=== PATIENT | female | born 1935 | race Caucasian/White ===

== ENCOUNTER 2017-12-11 09:59 | Outpatient (CLI) | payer MEDICARE, OTHER | END 2017-12-11 10:00 | disposition home or self-care (01) | LOC: BICMAMMO 09:59 | PROVIDERS: ATTEND Internal Medicine | DX: Z12.31 Encounter for screening mammogram for malignant neoplasm of breast (principal) | CPT/HCPCS: 77063; 77067 ==

== ENCOUNTER 2018-01-04 04:36 | Inpatient (IN) | payer MEDICARE, OTHER ==
[2018-01-04] MEDS ORDERED: Ondansetron PF 4 MG/2 ML Vial ONE (05:02)
[2018-01-04 05:13] LABS: #Basophils 0.1 thou/uL (0.0-0.2); #Eosinphils 0.1 thou/uL (0.0-0.7); #Lymphocytes 1.5 thou/uL (1.20-3.40); #Monocytes 0.5 thou/uL (0.11-0.59); #Neutrophils 8.3 thou/uL (1.40-6.50); %Basophils 0.5 % (0.0-1.0); %Lymphocytes 13.9 % (21.0-51.0); %Monocytes 5.1 % (0.0-10.0); %Neutrophils 79.5 % (42.0-75.0); Mean Corpuscular HGB CONC 32.5 g/dL (32.0-36.0); Mean Corpuscular Hemoglobin 31.4 pg (27.0-31.0); Mean Corpuscular Volume 96.7 fL (78.0-98.0); Mean Platelet Volume 8.7 fL (7.4-10.4); Platelet Count 248 thou/uL (130-400); RBC Distribution Width 12.1 % (11.5-14.5); Red Blood Cell (RBC) Count 4.46 mill/uL (4.20-5.40); White Blood Cell (WBC) Count 10.4 thou/uL (4.8-10.8)
[2018-01-04 05:26] LABS: ALT (SGPT) 29 U/L (8-55); AST (SGOT) 31 U/L (5-34); Alkaline Phosphatase 79 U/L (40-150); Anion Gap 15 mmol/L (10-20); BUN (Urea Nitrogen) 23 mg/dL (9.8-20.1); Bilirubin, Total 0.6 mg/dL (0.2-1.2); Calc. Creatinine Clearance 0 mL/min (70-130); Calcium 10.6 mg/dL (7.8-10.44); Carbon Dioxide 24 mmol/L (23-31); Chloride 103 mmol/L (98-107); Estimated GFR-MDRD 44; Globulin 3.1 g/dL (2.4-3.5); Glucose 125 mg/dL (83-110); Lipase 29 U/L (8-78); Potassium 4.1 mmol/L (3.5-5.1); Protein, Total 7.1 g/dL (6.0-8.3); Sodium 138 mmol/L (136-145)
[2018-01-04 06:27] LABS: Bilirubin Negative (Negative); Blood, Urine Negative (Negative); Clarity CLEAR (Clear); Glucose, Urine (Dipstick) Negative (Negative); Leukocyte Trace (Negative); Nitrite Negative (Negative); Protein, Urine (Dipstick) Negative (Neg-Trace); Specific Gravity, Urine 1.009 (1.002-1.036); Urobilinogen 0.2 mg/dL (0.2-1.0); pH, Urine 6.5 (5.0-9.0)
[2018-01-04 06:30] LABS: Bacteria/HPF None Seen HPF (None Seen); Hyaline Casts/LPF 0-3 HYALINE CAST LPF (0-3 Hyaline); RBC/HPF 0-3 HPF (0-3); Squamous Epithelial 0-3 HPF (0-3); WBC/HPF 0-3 HPF (0-3)
[2018-01-04] MEDS ORDERED: Lidocaine Viscous Sol 2% 15 ml UD Cup ONE (07:07)
--- NOTE | 2018-01-04 07:53 | RAD ---
FRONTAL VIEW ABDOMEN: INDICATION: Tube placement. FINDINGS: There is an enteric catheter partially visualized that terminates at the left upper quadrant. There is an air-filled gastric lumen. The paucity of bowel gas pattern is otherwise depicted. IMPRESSION: Enteric catheter traverses to the left upper quadrant. POS: [facility]
--- NOTE | 2018-01-04 08:26 | CT ---
PRELIMINARY REPORT/[facility]/EMERGENTY AFTER-HOURS PROCEDURE CT Abdomen and Pelvis With Intravenous Contrast EXAM DATE/TIME: 01/04/2018 6:16 AM CLINICAL HISTORY: 82 years old, female; Pain; Abdominal pain; Acute; Additional info: Er 8; 82 yo f presents to ed via ems with defuse abdominal pain. PT reports aching abdominal pain that started yesterday afternoon, wi th intermittent nausea. PT reports current abdominal hernia for the past 10 years. Surgical HX of reverse colostomy/hernia, colon surgery (severe sepsis), gallbladder, hysterectomy, appendecotmy. TECHNIQUE: Axial computed tomography images of the abdomen and pelvis with intravenous contrast. All CT scans at this facility use at least one of these dose optimization techniques: automated exposure control; mA and/or kV adjustment per patient size (includes targeted exams where dose is matched to clinical ind ication); or iterative reconstruction. Coronal reformatted images were created and reviewed. CONTRAST: 100 ml of isovue 370 administered intravenously. COMPARISON: No relevant prior studies available. FINDINGS: Lower thorax: No acute findings. ABDOMEN: Liver: Couple of subcentimeter low attenuation lesions too small to characterize. Gallbladder and bile ducts: Cholecystectomy. Pancreas: Unremarkable. Spleen: Unremarkable. Adrenals: Unremarkable. Kidneys and ureters: 2.3 cm left renal lesion slightly more dense than a simple cyst. Few subcentimet er low attenuation renal lesions bilaterally, too small to characterize, although some more dense danii n simple cysts. Punctate nonobstructive stone in the lower pole of the right kidney. No obstructive stone or hydronephrosis. Stomach and bowel: Apparent wall thickening about the GE junction. Sigmoid sutures. Dilated loops of proximal small bowel with change in caliber anteriorly in the left mid abdomen (43-35). The distal small bowel is decompressed. Stranding and minimal fluid within the mesentery of the dilated l oops. Appendix: History of appendectomy. PELVIS: Bladder: Unremarkable. Reproductive: Hysterectomy. ABDOMEN and PELVIS: Intraperitoneal space: No organized fluid collection. No free air. Bones/joints: No acute fracture. No dislocation. Soft tissues: Periumbilical hernia containing a short segment of nonobstructed transverse colon. Small fat containing ventral abdominal wall hernia superiorly. Vasculature: Unremarkable. Lymph nodes: No enlarged lymph nodes. IMPRESSION: 1. Dilated small bowel loops with mesenteric edema and change in caliber in the left anterior abdomen suggestive of obstruction. 2. Wall thickening of the GE junction. Thank you for allowing us to participate in the care of your patient. Dictated and Authenticated by: Jose Alejandro Rodriguez MD 01/04/2018 6:41 AM Central Time ([place] & [place]) FINAL REPORT CT ABDOMEN AND PELVIS WITH IV CONTRAST: I agree with the preliminary report given by Dr. Jose Alejandro Rodriguez of [facility]. POS: [facility]
[2018-01-04 08:33] VITALS: BMI 42.1
[2018-01-04] MEDS ORDERED: Acetaminophen 325 MG TAB PO PRN (08:49)
[2018-01-04] MEDS ORDERED: Dextrose 5 % And 0.9 % NaCl 1,000 ML IV SCH (09:00)
[2018-01-04] MEDS: Dextrose 5 % And 0.9 % NaCl 1,000 ML IV SCH ×5 (09:18→23:11)
[2018-01-04] MEDS: Famotidine/PF 20 mg/2ml Vial SLOW IVP SCH ×2 (09:23→20:13)
[2018-01-04 09:25] LABS: PTT 30.9 SEC (22.9-36.1); Prothrombin Time 13.2 SEC (12.0-14.7)
[2018-01-04] MEDS ORDERED: Sodium Chloride 0.9% 500 ML IV SCH (09:45)
--- NOTE | 2018-01-04 10:16 | CON ---
DATE OF CONSULTATION: 01/04/2018 CHIEF COMPLAINT: Mid abdominal pain. HISTORY: An 82-year-old female with a 24-hour history of generalized abdominal pain and nausea. Las t bowel movement Thursday. Last flatus Thursday. She has had multiple abdominal surgeries including a sigmoid colon resection for perforation with subsequent colostomy reversal. PAST MEDICAL HISTORY: Ventral hernia, morbid obesity, hypertension, Meniere's, hyperlipidemia. PAST SURGICAL HISTORY: The colectomy, colostomy takedown, lumpectomy, carpal tunnel, total knee repl acement, rotator cuff surgery, laparoscopic cholecystectomy, cataract surgery, open hysterectomy, ike endectomy, tonsil and adenoidectomy. MEDICATIONS: Hydrochlorothiazide, lisinopril, CoQ 10, Tylenol, Aleve and multivitamins. ALLERGIES: LATEX, PENICILLIN, SULFA, CITALOPRAM, LEXAPRO, CIPRO, FLAGYL, NITROFURANTOIN, TRAMADOL, D ARVON, SANSAR. SOCIAL HISTORY: . She is a personal banking advisor, still working. No tobacco, no alcohol. FAMILY HISTORY: Heart disease and cancer. PHYSICAL EXAMINATION: VITAL SIGNS: Temperature 98.5, pulse 102, blood pressure 151/82. GENERAL: She is awake, alert, does not appear to be in any distress. HEENT: Unremarkable. LUNGS: Clear. HEART: Regular rate and rhythm. ABDOMEN: Morbidly obese. She has an umbilical hernia that is reducible and a separate ventral herni a above that area that is more difficult to reduce, but is also reducible. There are rare bowel soun ds, no masses. She is somewhat distended. She has multiple well-healed surgical scars in the midlin e, left lower quadrant, right lower quadrant. EXTREMITIES: Unremarkable. LABORATORY AND X-RAY FINDINGS: Her white count is 10, H&H 14 and 43, platelet count 248. Electrolyt es; BUN is 23, creatinine 1.18, glucose 125. Urinalysis; trace leukocyte esterase, INR 1. She had a CT scan of the abdomen and pelvis showing dilated small bowel with mesenteric edema and miguel nges in caliber in the left anterior abdomen consistent with an obstruction and some wall thickening at the GE junction. ASSESSMENT: Small-bowel obstruction. PLAN: NG suction, IV hydration, serial exams and x-rays.
[2018-01-04] MEDS ORDERED: ISOVUE-370 76%-LOCM 1 ML ONE (10:57)
[2018-01-04] MEDS ORDERED: Cepastat Lozenges 1 LOZ PO PRN (16:38)
[2018-01-04] MEDS ORDERED: hydrALAZINE 20 MG/ML VIAL SLOW IVP PRN (16:39)
--- NOTE | 2018-01-04 17:52 | HP ---
HISTORY OF PRESENT ILLNESS: Patient is a pleasant 82-year-old female with past medical history of hy pertension, who comes into the hospital with complaints of generalized abdominal pain and nausea x1 d ay. Patient stated her last bowel movement was Thursday; yesterday after lunch, she started having s ignificant amount of abdominal pain. She did not describe as a cramping or a sharp pain, but just fe lt very uncomfortable and also nausea. Patient thought that her pain would improve, so she kind of w ent laid down; however, her pain continued to worsen, so she came into the hospital for further evalu ation. Patient has a history of sigmoid colon resection secondary to perforation from diverticulitis. She a lso had a colostomy which was reversed. PAST MEDICAL HISTORY: She has a history of ventral hernia. She has a history of diverticulitis and perforation, history of morbid obesity, has history of hypertension and she has a history of hyperlip idemia. PAST SURGICAL HISTORY: She has had a colectomy, colostomy takedown. She had carpal tunnel repair, t otal knee replacement, rotator cuff repair, laparoscopic cholecystectomy. She also had a hysterectom y, appendectomy, tonsillectomy and adenoidectomy. MEDICATIONS: Patient takes hydrochlorothiazide 12.5 daily. She takes lisinopril 40 mg daily. She t akes vitamin B 150 mg daily. ALLERGIES: She has got multiple allergies including LATEX, PENICILLIN, SULFA, CITALOPRAM, LEXAPRO, C IPRO, FLAGYL, NITROFURANTOIN, TRAMADOL, DARVON and . SOCIAL HISTORY: She denies any alcohol or drug use. 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 FAMILY HISTORY: Mother and father has history of heart disease and cancer. PHYSICAL EXAMINATION: VITAL SIGNS: As of the following, temperature of 98.5, 102, 18, 97% room air, 151/82. GENERAL: She is awake, alert, oriented x3, does not appear in distress. HEENT: Normocephalic, atraumatic. NECK: No lymphadenopathy noted. CARDIOVASCULAR: S1, S2 present. No murmurs, rubs or gallops. LUNGS: Clear to auscultation, rhonchi or wheezes noted. ABDOMEN: Soft. Bowel sounds are present x2. Mild pain upon palpation to right lower quadrant and l eft lower quadrant. EXTREMITIES: No edema. Pedal pulses are present x2. NEUROLOGIC: No focal deficits noted. LABORATORY DATA: WBC of 10.4, hemoglobin of 14.0, hematocrit of 43.1, platelets of 248. Chemistry: Sodium of 138, potassium of 4.1, creatinine of 1.18, BUN of 23, calcium of 10.6. LFTs were normal. Her urine was negative. Patient did have a CT abdomen and pelvis, which indicated dilated small bow el loops with mesenteric edema and changes in caliber in the left anterior abdomen suggestive of obst ruction and wall thickening in the GE junction. ASSESSMENT AND PLAN: Patient is a very pleasant 82-year-old female who presented to the hospital wit h abdominal pain, nausea. 1. Small-bowel obstruction. Patient currently has a NG tube. She states she feels a little better than prior. We will continue the NG tube. Surgery has been consulted. We will hold all her p.o. me ds. She is currently n.p.o. We will continue IV fluids and also pain management, IV pain medication s. 2. Hypercalcemia. We will continue fluid to see if that will help. It is most likely secondary to dehydration; however, if her calcium continues to be elevated, as she may require a little bit furthe r workup since she does have mild elevated creatinine also. May consider checking a vitamin D and a parathyroid. 3. Hypertension. We will hold her p.o. medications. We will put her on IV medications. 4. Deep venous thrombosis prophylaxis. We will put patient on subcutaneous heparin.
[2018-01-04] MEDS: Heparin 5,000 UNITS/ML VIAL SC SCH (20:13)
[2018-01-05 06:30] LABS: #Eosinphils 0.3 thou/uL (0.0-0.7); #Lymphocytes 1.7 thou/uL (1.20-3.40); #Monocytes 0.7 thou/uL (0.11-0.59); #Neutrophils 6.6 thou/uL (1.40-6.50); %Basophils 0.2 % (0.0-1.0); %Monocytes 7.5 % (0.0-10.0); %Neutrophils 71.3 % (42.0-75.0); Hemoglobin 12.5 g/dL (12.0-16.0); Mean Corpuscular HGB CONC 32.1 g/dL (32.0-36.0); Mean Corpuscular Hemoglobin 31.5 pg (27.0-31.0); Mean Corpuscular Volume 98.1 fL (78.0-98.0); Mean Platelet Volume 9.2 fL (7.4-10.4); Platelet Count 208 thou/uL (130-400); RBC Distribution Width 12.1 % (11.5-14.5); Red Blood Cell (RBC) Count 3.96 mill/uL (4.20-5.40); White Blood Cell (WBC) Count 9.2 thou/uL (4.8-10.8)
[2018-01-05 06:52] LABS: Anion Gap 10 mmol/L (10-20); BUN (Urea Nitrogen) 13 mg/dL (9.8-20.1); Calc. Creatinine Clearance 74 mL/min (70-130); Calcium 9.5 mg/dL (7.8-10.44); Carbon Dioxide 28 mmol/L (23-31); Chloride 107 mmol/L (98-107); Estimated GFR-MDRD 53; Glucose 111 mg/dL (83-110); Magnesium 1.6 mg/dL (1.6-2.6); Potassium 3.7 mmol/L (3.5-5.1); Sodium 141 mmol/L (136-145)
[2018-01-05] MEDS: Famotidine/PF 20 mg/2ml Vial SLOW IVP SCH ×2 (07:55→19:48)
[2018-01-05] MEDS: Heparin 5,000 UNITS/ML VIAL SC SCH ×3 (07:57→19:50)
[2018-01-05] MEDS: Dextrose 5 % And 0.9 % NaCl 1,000 ML IV SCH ×3 (07:58→19:47)
[2018-01-05] MEDS ORDERED: MD-Gastroview 120 ML BOT ONE (11:50)
--- NOTE | 2018-01-05 12:36 | RAD ---
SMALL BOWEL FOLLOW THROUGH: CLINICAL HISTORY: Small bowel obstruction. FINDINGS: Approximately 480 cc radiopaque enteric contrast was administered via the patient's orogastric tube w ith subsequent radiographic imaging for 45 minutes. By 45 minutes of imaging, there is contrast with in the colon. The contrast-opacified small bowel loops are mildly dilated. IMPRESSION: Progression of contrast through the small bowel and into the colon by 45 minutes. Persistent mild di latation of small bowel is present. Findings may relate to a low-grade/partial obstruction versus re sidual ileus. POS: [facility]
--- NOTE | 2018-01-05 13:18 | PRG ---
DATE OF SERVICE: 01/05/2018 HOSPITAL COURSE: The patient reports multiple bowel movements today. She had a small bowel follow t hrough that showed a little bit of residual small bowel dilatation, but no obstruction and flow into the colon by 45 minutes. She is still having a little nausea, though. PHYSICAL EXAMINATION: VITAL SIGNS: Her temperature 98.5, pulse 83, blood pressure 126/58. GENERAL: She looks good, better than yesterday. LABORATORY: White count is 9.2, H&H 12 and 38, platelet count 208. Electrolytes; glucose is elevate d at 111. ASSESSMENT: Doing well. PLAN: The plan is to just resume NG suction for a while to get as much of the contrast out as we can . When her nausea resolves I told the nurse that we could remove the NG tube and then start her on l iquids.
--- NOTE | 2018-01-05 18:07 | PDOC.PN ---
- Subjective Encounter Start Date: 01/05/18 Encounter Start Time: 11:00 Patient seen and examined for SBO. Abd pain improving. Had BM today. No other complaints. No overnight events - Objective Resuscitation Status: Resuscitation Status FULL:Full Resuscitation MAR Reviewed: Yes Vital Signs & Weight: Vital Signs (12 hours) Temp Pulse Resp BP Pulse Ox 01/05/18 17:22 18 95 01/05/18 16:33 99.0 F 95 20 128/57 L 01/05/18 12:55 97.7 F 108 H 18 95 01/05/18 12:42 107 H 20 118/80 94 L 01/05/18 08:00 97 01/05/18 07:55 18 97 01/05/18 07:45 98.5 F 83 22 H 126/58 L 97 Weight Weight 238 lb I&O: 01/04/18 01/05/18 01/06/18 06:59 06:59 06:59 Intake Total 1500 800 Balance 1500 800 Result Diagrams: 01/05/18 05:52 01/06/18 03:37 Additional Labs: Accuchecks 01/05/18 11:23 POC Glucose 114 H Radiology Reviewed by me: Yes (CT abd - SBO) Phys Exam - Physical Examination Constitutional: NAD Respiratory: no wheezing, no rhonchi Cardiovascular: RRR, no rub Gastrointestinal: soft, non-tender, positive bowel sounds Musculoskeletal: no edema Neurological: moves all 4 limbs Dx/Plan - Plan DVT proph w/SCDs 1. SBO 2. HTN 3. Morbid obesity BMI 42 4. CKD 3 5. Dehydration 6. Vit D def PLAN: Small bowel follow through today Cont IVF AM labs Replace Vit D once tolerating PO Cont other meds as below Review of Systems - Review of Systems Cardiovascular: negative: chest pain, palpitations, orthopnea, paroxysmal nocturnal dyspnea, edema, light headedness, other Gastrointestinal: negative: Nausea, Vomiting, Abdominal Pain, Diarrhea, Constipation, Melena, Hematochezia, Other - Medications/Allergies Allergies/Adverse Reactions: Allergies Allergy/AdvReac Type Severity Reaction Status Date / Time latex Allergy Intermediate Severe Verified 07/19/12 10:57 Hives methysergide maleate Allergy Intermediate Anxiety Verified 10/10/13 12:48 [From Sansert] Penicillins Allergy Intermediate Rash Verified 10/10/13 12:48 Sulfa (Sulfonamide Allergy Intermediate Nausea Verified 10/10/13 12:48 Antibiotics) cephalexin monohydrate Allergy Mild Verified 10/10/13 12:48 [From Keflex] cetirizine Allergy Mild Verified 10/10/13 12:48 cilostazol Allergy Mild Verified 10/10/13 12:48 escitalopram oxalate Allergy Mild Verified 10/10/13 12:48 [From Lexapro] propoxyphene HCl Allergy Mild Verified 10/10/13 12:48 [From Darvon] propoxyphene napsylate Allergy Mild Verified 10/10/13 12:48 [From Darvocet-N 100] tramadol Allergy Mild Verified 10/10/13 12:48 dichloralphenazone Allergy Verified 10/10/13 12:48 [From MIDRIN] isometheptene mucate Allergy Verified 10/10/13 12:48 [From MIDRIN] metronidazole Allergy Verified 10/10/13 13:12 nitrofurantoin Allergy Verified 10/10/13 13:12 ciprofloxacin [From Cipro] AdvReac Intermediate Nausea Verified 10/10/13 12:48 ciprofloxacin HCl AdvReac Intermediate Nausea Verified 10/10/13 12:48 [From Cipro] Medications: Current Medications Acetaminophen (Tylenol) 650 mg PO Q4H PRN PRN Reason: Headache/Fever/Mild Pain (1-3) Famotidine (Pepcid) 20 mg SLOW IVP Q12HR COUNT INCLUDES THE [facility] Last Admin: 01/05/18 07:55 Dose: 20 mg Heparin Sodium (Porcine) (Heparin) 5,000 units SC TID COUNT INCLUDES THE [facility] Last Admin: 01/05/18 15:10 Dose: 5,000 units Hydralazine HCl (Apresoline) 5 mg SLOW IVP Q4H PRN PRN Reason: Blood Pressure Dextrose/Sodium Chloride (D5 0.9% Ns) 1,000 mls @ 125 mls/hr IV .Q8H COUNT INCLUDES THE [facility] Last Admin: 01/05/18 16:39 Dose: Not Given Throat Lozenges (Cepastat Lozenges) 1 brendan PO Q2H PRN PRN Reason: Sore Throat Last Admin: 01/05/18 01:51 Dose: 1 brendan
[2018-01-06] MEDS: Dextrose 5 % And 0.9 % NaCl 1,000 ML IV SCH ×2 (03:50→12:29)
[2018-01-06 05:12] LABS: Anion Gap 10 mmol/L (10-20); BUN (Urea Nitrogen) 10 mg/dL (9.8-20.1); Calc. Creatinine Clearance 72 mL/min (70-130); Calcium 9.6 mg/dL (7.8-10.44); Carbon Dioxide 27 mmol/L (23-31); Chloride 112 mmol/L (98-107); Estimated GFR-MDRD 51; Glucose 97 mg/dL (83-110); Magnesium 1.7 mg/dL (1.6-2.6); Phosphorus 2.1 mg/dL (2.3-4.7); Potassium 3.6 mmol/L (3.5-5.1); Sodium 145 mmol/L (136-145)
[2018-01-06] MEDS ORDERED: hydrALAZINE 20 MG/ML VIAL SLOW IVP PRN (06:32)
[2018-01-06 08:03] VITALS: BP 122/76; TEMP 97.8
[2018-01-06] MEDS: K-Phos Neutral 250 MG TAB PO SCH ×2 (08:27→11:21)
--- NOTE | 2018-01-06 08:53 | PRG ---
DATE OF SERVICE: 01/06/2018 SUBJECTIVE: The patient is tolerating clear liquids, passing flatus. She is hungry for more food. PHYSICAL EXAMINATION: VITAL SIGNS: Temperature 97.8, pulse 80, blood pressure 122/76. GENERAL: She looks good. ABDOMEN: Soft, nondistended, nontender, morbidly obese. ASSESSMENT: Small-bowel obstruction, resolved. PLAN: Advance diet. Discharge when Medicine ready.
[2018-01-06] MEDS ORDERED: Famotidine 20 MG TAB PO SCH (09:00)
[2018-01-06] MEDS ORDERED: Ergocalciferol 1.25 MG(50,000 UNITS) CAP PO SCH (09:00)
--- NOTE | 2018-01-06 18:06 | DIS ---
DATE OF DISCHARGE: 01/06/2018 DISCHARGE DISPOSITION: Home. FOLLOWUP: With primary care physician, Dr. James in 1 week. DISCHARGE MEDICATIONS: K-Phos 250 mg three times daily #7. All other home medications were left unchanged. DIAGNOSTIC TESTS: 25-hydroxy vitamin D was 26. PTH intact was 102.6, phosphorus was 2.1, magnesium 1.7. Creatinine on the day of discharge is 1.03, on admission was 1.18. BUN on admission was 23, at discharge 10. Urinalysis was negative for wbc, bacteria. CT scan of the abdomen and pelvis on admi ssion was consistent with small-bowel obstruction. BRIEF HOSPITAL COURSE: The patient is an 82-year-old female with colectomy in the past, presented to the hospital with abdominal pain. Her workup was consistent with small-bowel obstruction. Please r efer to the history and physical dated 01/03/[address] Mchugh for further details. The patient was admitted to the medical floor with a diagnosis of small-bowel obstruction. NG tube w as placed. She was started on IV fluids. The patient was evaluated by General Surgery. She underwe nt Gastrografin study. Next day, the patient underwent small bowel follow-through that showed progre ssion of the contrast through the small bowel into the colon by 45 minutes. She was started on clear liquid diet that has been advanced to full liquid diet. She has been cleared by General Surgery for discharge. The patient was found to have hypercalcemia of 10.6. Her PTH level was slightly elevated. Vitamin D level was low. Phosphorus level was also low. She would need further workup for possible primary h yperparathyroidism. FINAL DIAGNOSES: 1. Small-bowel obstruction, resolved. 2. Hypertension. 3. Morbid obesity with a BMI of 42. 4. Chronic kidney disease stage 3. 5. Dehydration. 6. Vitamin D deficiency. 7. Hypercalcemia with hypophosphatemia. 8. Suspected hyperparathyroidism. Further workup as needed. Primary care physician advised to foll ow. Plan of care was discussed with the patient in detail. She stated understanding.
== END 2018-01-06 14:58 | disposition home or self-care (01) | DRG 389 ==
LOC: ERS 04:36 → T4-A 07:07
PROVIDERS: ADMIT Internal Medicine; ATTEND Internal Medicine
PROC: 0D9670Z Drainage of Stomach with Drainage Device, Via Natural or Artificial Opening (ICD-10-PCS; principal; 2018-01-04)
DX: K56.609 Unspecified intestinal obstruction, unspecified as to partial versus complete obstruction (principal); Z68.41 Body mass index [BMI] 40.0-44.9, adult; E78.5 Hyperlipidemia, unspecified; E66.01 Morbid (severe) obesity due to excess calories; E83.52 Hypercalcemia; E86.0 Dehydration; I12.9 Hypertensive chronic kidney disease with stage 1 through stage 4 chronic kidney disease, or unspecified chronic kidney disease; N18.3 Chronic kidney disease, stage 3 (moderate); E83.39 Other disorders of phosphorus metabolism
CPT/HCPCS: 36415; 36416; 74018; 74177; 74250; 80048; 80053; 81003; 81015; 82306; 83605; 83690; 83735; 83970; 84100; 85025; 85610; 85730; 93005; 96361; 96374; J1644; J2405; S0028

== ENCOUNTER 2018-11-24 07:18 | Outpatient (CLI) | payer MEDICARE, OTHER ==
--- NOTE | 2018-11-24 09:58 | CT ---
CT ABDOMEN AND PELVIS WITH IV CONTRAST: HISTORY: Generalized abdominal pain and unintentional weight loss. COMPARISON: 01/04/2018 FINDINGS: There is minimal patchy density in the region of the lingula, probably related to atelectasis. The liz ng bases are otherwise clear. Vascular calcifications are again seen in the abdominal aorta and involving the iliac arteries. Post cholecystectomy changes are present. The liver, spleen, pancreas and bilateral adrenal glands demonstrate a normal CT appearance. There ar e subcentimeter hypodense and hyperdense lesions again seen within each kidney, which are difficult t o accurately characterize but not significantly changed in size. There is no hydronephrosis. A few pa rapelvic left renal cysts are seen. The urinary bladder is mostly decompressed. There is evidence of prior hysterectomy. Post surgical changes of the colon are noted with anastomosis in the region of the sigmoid colon. The ventral abdominal wall hernia contains a loop of the transverse colon. This was also present on t he prior exam. There is no evidence of a bowel obstruction. The appendix is not visualized but there are no secondary signs to suggest appendicitis. No free fluid, fluid collection or lymphadenopathy is seen in the abdomen or pelvis. Degenerative changes are again seen in the spine. No suspicious lytic or sclerotic osseous lesions ar e identified. Bilateral hip osteoarthritis is present. The previously seen dilated, fluid filled loops of small bowel in the left aspect of the abdomen are normal in caliber on today's exam. A very small hiatal hernia is present. No other interval change. IMPRESSION: 1. No acute findings are seen in the abdomen or pelvis. 2. No evidence of lymphadenopathy. 3. Post cholecystectomy changes. 4. Ventral abdominal wall hernias, one containing a small amount of mesenteric fat and the second con taining a loop of transverse colon, stable from prior study. 5. Stable postoperative changes in the region of the sigmoid colon with evidence of anastomosis. 6. Hysterectomy. 7. Interval resolution of dilated loops of bowel and edema within the mesentery left lower quadrant. 8. Subcentimeter hypodense and hyperdense bilateral renal lesions with larger inferior pole left osiris l cyst again seen and stable. POS: [facility]
[2018-11-24] MEDS ORDERED: ISOVUE-370 76%-LOCM 1 ML ONE (10:10)
== END 2018-11-24 07:19 | disposition home or self-care (01) ==
LOC: BICCT 07:18
PROVIDERS: ATTEND Physician Assistant Medical
DX: R13.10 Dysphagia, unspecified (principal); R10.84 Generalized abdominal pain; R19.4 Change in bowel habit; R11.0 Nausea; R63.4 Abnormal weight loss; K43.9 Ventral hernia without obstruction or gangrene; Z90.49 Acquired absence of other specified parts of digestive tract; Z98.890 Other specified postprocedural states; Z90.710 Acquired absence of both cervix and uterus; N28.1 Cyst of kidney, acquired; N28.9 Disorder of kidney and ureter, unspecified
CPT/HCPCS: 74177; Q9966

== ENCOUNTER 2018-12-14 08:30 | Outpatient (CLI) | payer MEDICARE, OTHER ==
--- NOTE | 2018-12-14 10:02 | MMO ---
Bilateral MAMMO Bilat Screen [facility]. CLINICAL HISTORY: Patient is 83 years old and is seen for screening. The patient has no family history of breast cancer. The patient has no personal history of cancer. The patient has a history of left Excisional Biopsy in September, - benign and left needle biopsy - benign. VIEWS: The views performed were: bilateral craniocaudal; bilateral craniocaudal with tomosynthesis; and bilateral mediolateral oblique with tomosynthesis. FILMS COMPARED: The present examination has been compared to prior imaging studies performed at [facility] on 11/01/2014, 11/09/2015, 12/09/2016 and 12/11/2017. This study has been interpreted with the assistance of computer-aided detection. MAMMOGRAM FINDINGS: There are scattered fibroglandular densities. There are stable benign appearing calcifications seen in both breasts. There are no suspicious masses, calcifications or areas of architectural distortion. There are no suspicious masses, suspicious calcifications, or new areas of architectural distortion. IMPRESSION: THERE IS NO MAMMOGRAPHIC EVIDENCE OF MALIGNANCY. A ROUTINE FOLLOW-UP MAMMOGRAM IN 1 YEAR IS RECOMMENDED. THE RESULTS OF THIS EXAM WERE SENT TO THE PATIENT. ACR BI-RADS Category 2 - Benign finding MAMMOGRAPHY NOTE: 1. A negative mammogram report should not delay a biopsy if a dominant of clinically suspicious mass is present. 2. Approximately 10% to 15% of breast cancers are not detected by mammography. 3. Adenosis and dense breasts may obscure an underlying neoplasm. Reported by: KHADRA CRISTOBAL MD Electonically Signed: [id number]
== END 2018-12-14 08:31 | disposition home or self-care (01) ==
LOC: BICMAMMO 08:30
PROVIDERS: ATTEND Internal Medicine
DX: Z12.31 Encounter for screening mammogram for malignant neoplasm of breast (principal)
CPT/HCPCS: 77063; 77067

== ENCOUNTER 2019-10-15 10:15 | Emergency (ER) | payer MEDICARE, OTHER ==
--- NOTE | 2019-10-15 11:29 | CT ---
Exam: Head CT without contrast HISTORY: Dizziness. Vertigo and nausea. COMPARISON: none FINDINGS: Hemorrhage: No intraparenchymal hemorrhage or extra-axial hematoma. Brain parenchyma: Cortical devine-white matter differentiation is preserved. No mass effect or midline shift. Basilar cisterns are patent. Ventricular system: Ventricles and sulci are patent and symmetric. Calvarium: Intact. Sinuses and mastoid air cells: Adequate aeration. IMPRESSION: No acute intracranial process.
[2019-10-15 11:36] LABS: Bilirubin Negative (Negative); Blood, Urine Negative (Negative); Clarity Clear (Clear); Glucose, Urine (Dipstick) Normal (Negative); Ketone, Urine Negative (Negative); Leukocyte Negative Leu/uL (Negative); Nitrite Negative (Negative); Protein, Urine (Dipstick) Negative (Neg-Trace); Specific Gravity, Urine 1.009 (1.002-1.036); Urobilinogen Normal mg/dL (Less than 2)
[2019-10-15 11:42] LABS: #Basophils 0.1 thou/uL (0.0-0.2); #Eosinphils 0.1 thou/uL (0.0-0.7); #Lymphocytes 1.4 thou/uL (1.20-3.40); #Monocytes 0.4 thou/uL (0.11-0.59); #Neutrophils 7.1 thou/uL (1.40-6.50); %Basophils 0.6 % (0.0-1.0); %Eosinophils 1.2 % (0.0-10.0); %Monocytes 4.6 % (0.0-10.0); %Neutrophils 78.5 % (42.0-75.0); Hemoglobin 14.7 g/dL (12.0-16.0); Mean Corpuscular HGB CONC 33.5 g/dL (32.0-36.0); Mean Corpuscular Hemoglobin 32.5 pg (27.0-31.0); Mean Corpuscular Volume 97.1 fL (78.0-98.0); Mean Platelet Volume 9.2 fL (7.4-10.4); Platelet Count 210 thou/uL (130-400); RBC Distribution Width 12.3 % (11.5-14.5); Red Blood Cell (RBC) Count 4.51 mill/uL (4.20-5.40); White Blood Cell (WBC) Count 9.1 thou/uL (4.8-10.8)
[2019-10-15 12:05] LABS: ALT (SGPT) 19 U/L (8-55); AST (SGOT) 28 U/L (5-34); Alkaline Phosphatase 94 U/L (40-110); Anion Gap 10 mmol/L (10-20); BUN (Urea Nitrogen) 26 mg/dL (9.8-20.1); Bilirubin, Total 0.5 mg/dL (0.2-1.2); Calc. Creatinine Clearance 0 mL/min (70-130); Calcium 10.1 mg/dL (7.8-10.44); Carbon Dioxide 28 mmol/L (23-31); Chloride 105 mmol/L (98-107); Estimated GFR-MDRD 49; Globulin 3.4 g/dL (2.4-3.5); Glucose 94 mg/dL (83-110); Lipase 41 U/L (8-78); Potassium 4.7 mmol/L (3.5-5.1); Protein, Total 7.4 g/dL (6.0-8.3); Sodium 138 mmol/L (136-145)
[2019-10-15] MEDS ORDERED: Meclizine HCl 25 MG TAB ONE (12:07)
== END 2019-10-15 13:16 | disposition home or self-care (01) ==
LOC: ERS 10:15
DX: R42 Dizziness and giddiness (principal); R29.700 NIHSS score 0; I10 Essential (primary) hypertension; Z79.899 Other long term (current) drug therapy
CPT/HCPCS: 70450; 80053; 81003; 83690; 84484; 85025; 93005

== ENCOUNTER 2019-12-30 12:22 | Outpatient (CLI) | payer MEDICARE, OTHER ==
--- NOTE | 2019-12-30 14:27 | MMO ---
Bilateral MAMMO Bilat Screen [facility]. CLINICAL HISTORY: Patient is 84 years old and is seen for screening. The patient has no family history of breast cancer. The patient has no personal history of cancer. The patient has a history of left Excisional Biopsy in September, - benign and left needle biopsy - benign. VIEWS: The views performed were: bilateral craniocaudal with tomosynthesis and bilateral mediolateral oblique with tomosynthesis. FILMS COMPARED: The present examination has been compared to prior imaging studies performed at [facility] on 11/09/2015, 12/09/2016, 12/11/2017 and 12/14/2018. This study has been interpreted with the assistance of computer-aided detection. MAMMOGRAM FINDINGS: Finding 1: There are stable benign appearing calcifications seen in both breasts. Finding 2: Evidence for fat necrosis. There are no suspicious masses, suspicious calcifications, or new areas of architectural distortion. IMPRESSION: THERE IS NO MAMMOGRAPHIC EVIDENCE OF MALIGNANCY. A ROUTINE FOLLOW-UP MAMMOGRAM IN 1 YEAR IS RECOMMENDED. THE RESULTS OF THIS EXAM WERE SENT TO THE PATIENT. ACR BI-RADS Category 2 - Benign finding MAMMOGRAPHY NOTE: 1. A negative mammogram report should not delay a biopsy if a dominant of clinically suspicious mass is present. 2. Approximately 10% to 15% of breast cancers are not detected by mammography. 3. Adenosis and dense breasts may obscure an underlying neoplasm. Reported by: BERTHA HERNANDEZ MD Electonically Signed: [id number]
== END 2019-12-30 12:23 | disposition home or self-care (01) ==
LOC: BICMAMMO 12:22
PROVIDERS: ATTEND Internal Medicine
DX: Z12.31 Encounter for screening mammogram for malignant neoplasm of breast (principal); Z91.89 Other specified personal risk factors, not elsewhere classified
CPT/HCPCS: 77063; 77067

== ENCOUNTER 2020-12-31 08:51 | Outpatient (CLI) | payer MEDICARE, OTHER | END 2020-12-31 08:52 | disposition home or self-care (01) | LOC: BICMAMMO 08:51 | PROVIDERS: ATTEND Internal Medicine | DX: Z12.31 Encounter for screening mammogram for malignant neoplasm of breast (principal); N63.21 Unspecified lump in the left breast, upper outer quadrant; Z91.89 Other specified personal risk factors, not elsewhere classified | CPT/HCPCS: 77063; 77067 ==

== ENCOUNTER 2021-01-03 15:35 | Outpatient (CLI) | payer MEDICARE, OTHER | END 2021-01-03 15:36 | disposition home or self-care (01) | LOC: BICULT 15:35 | PROVIDERS: ATTEND Internal Medicine | DX: N63.21 Unspecified lump in the left breast, upper outer quadrant (principal) ==

== ENCOUNTER → 2021-01-07 | Day surgery (SDC) | payer MEDICARE, OTHER | LOC: BICULT 12:39 | PROVIDERS: ATTEND Internal Medicine | PROC: 0H9U3ZX Drainage of Left Breast, Percutaneous Approach, Diagnostic (ICD-10-PCS; principal; 2021-01-07) | DX: C50.412 Malignant neoplasm of upper-outer quadrant of left female breast (principal); Z88.0 Allergy status to penicillin; Z88.1 Allergy status to other antibiotic agents; Z88.2 Allergy status to sulfonamides; Z88.5 Allergy status to narcotic agent; Z88.8 Allergy status to other drugs, medicaments and biological substances; Z91.040 Latex allergy status | CPT/HCPCS: 19083; 88305; 88341; 88342 ==

== ENCOUNTER 2021-03-07 11:47 | Outpatient (CLI) | payer MEDICARE, OTHER ==
[2021-03-07 13:05] LABS: #Basophils 0.1 10x3/uL (0.0-0.2); #Eosinphils 0.2 10x3/uL (0.0-0.5); #Monocytes 0.6 10x3/uL (0.0-1.1); #Neutrophils 5.7 10x3/uL (1.5-8.4); %Basophils 0.9 % (0.0-2.0); %Eosinophils 1.8 % (0.0-6.0); %Lymphocytes 25.8 % (18.0-47.0); %Monocytes 6.3 % (0.0-10.0); %Neutrophils 64.7 % (40.0-75.0); Mean Corpuscular HGB CONC 32.6 g/dL (32.0-36.0); Mean Corpuscular Hemoglobin 31.5 pg (27.0-33.0); Mean Corpuscular Volume 96.4 fl (81.6-98.3); Mean Platelet Volume 11.6 fl (7.4-10.4); Platelet Count 227 10x3/uL (150-450); RBC Distribution Width 12.5 % (11.5-14.5); Red Blood Cell (RBC) Count 4.45 10x6/uL (3.90-5.03); White Blood Cell (WBC) Count 8.8 10x3/uL (3.5-10.5)
[2021-03-07 13:45] LABS: Anion Gap 14 mmol/L (10-20); BUN (Urea Nitrogen) 19 mg/dL (9.8-20.1); Calc. Creatinine Clearance 0 mL/min (70-130); Calcium 10.2 mg/dL (7.8-10.44); Carbon Dioxide 28 mmol/L (23-31); Chloride 103 mmol/L (98-107); Glucose 87 mg/dL (83-110); Potassium 4.3 mmol/L (3.5-5.1); Sodium 141 mmol/L (136-145)
[2021-03-08 12:02] LABS: SARS-CoV-2 PCR by NAA Not Detected (NotDetected)
== END 2021-03-07 11:48 | disposition home or self-care (01) ==
LOC: LABBT 11:47
PROVIDERS: ATTEND Specialist
DX: Z01.818 Encounter for other preprocedural examination (principal); C50.919 Malignant neoplasm of unspecified site of unspecified female breast; Z20.822 Contact with and (suspected) exposure to COVID-19
CPT/HCPCS: 71046; 80048; 85025; U0003; U0005

== ENCOUNTER 2021-03-12 06:59 | Day surgery (SDC) | payer MEDICARE, OTHER ==
[2021-03-01 14:58] VITALS: BMI 36.6
[2021-03-12] MEDS ORDERED: Ondansetron PF 4 MG/2 ML Vial ONE (12:08)
[2021-03-12] MEDS ORDERED: Dexamethasone 20 MG/5 ML VIAL ONE (12:08)
[2021-03-12] MEDS ORDERED: Lidocaine 1% PF 5 ML VIAL ONE (12:08)
[2021-03-12] MEDS ORDERED: PROPOFOL 200 MG/20 ML VIAL ONE (12:08)
[2021-03-12] MEDS ORDERED: PHENYLEPHRINE-NS 100 MCG/ML 10 ML SYRINGE ONE (12:08)
== END 2021-03-12 16:57 | disposition home or self-care (01) ==
LOC: MAMMO 06:59 → SDC 15:53
PROVIDERS: ATTEND Specialist
PROC: 0HBU0ZZ Excision of Left Breast, Open Approach (ICD-10-PCS; principal; 2021-03-12)
PROC: 07B60ZX Excision of Left Axillary Lymphatic, Open Approach, Diagnostic (ICD-10-PCS; 2021-03-12)
DX: C50.412 Malignant neoplasm of upper-outer quadrant of left female breast (principal); E78.5 Hyperlipidemia, unspecified; I10 Essential (primary) hypertension; M06.9 Rheumatoid arthritis, unspecified; J45.909 Unspecified asthma, uncomplicated; Z17.0 Estrogen receptor positive status [ER+]; Z79.899 Other long term (current) drug therapy; Z88.0 Allergy status to penicillin; Z88.1 Allergy status to other antibiotic agents; Z88.2 Allergy status to sulfonamides; Z88.5 Allergy status to narcotic agent; Z88.8 Allergy status to other drugs, medicaments and biological substances; Z91.040 Latex allergy status
CPT/HCPCS: 19281; 19301; 38525; 76098; 78195; A9541; 88307; 88342; J1100; J2405; J2704

== ENCOUNTER 2021-03-22 04:18 | Inpatient (IN) | payer MEDICARE, OTHER ==
[2021-03-22] MEDS ORDERED: Morphine 4 MG/ML VIAL ONE ×4 (04:33→18:00)
[2021-03-22] MEDS ORDERED: Ondansetron PF 4 MG/2 ML Vial ONE ×2 (04:49→13:37)
[2021-03-22 05:02] LABS: #Basophils 0.1 thou/uL (0.0-0.2); #Eosinphils 0.1 thou/uL (0.0-0.7); #Lymphocytes 1.1 thou/uL (1.20-3.40); #Monocytes 0.6 thou/uL (0.11-0.59); #Neutrophils 9.3 thou/uL (1.40-6.50); %Basophils 0.6 % (0.0-1.0); %Eosinophils 0.8 % (0.0-10.0); %Lymphocytes 9.5 % (21.0-51.0); %Monocytes 4.9 % (0.0-10.0); %Neutrophils 84.1 % (42.0-75.0); Hemoglobin 14.2 g/dL (12.0-16.0); Mean Corpuscular HGB CONC 32.8 g/dL (32.0-36.0); Mean Corpuscular Hemoglobin 31.7 pg (27.0-31.0); Mean Corpuscular Volume 96.4 fL (78.0-98.0); Mean Platelet Volume 8.3 fL (7.4-10.4); Platelet Count 253 thou/uL (130-400); RBC Distribution Width 11.8 % (11.5-14.5); Red Blood Cell (RBC) Count 4.47 mill/uL (4.20-5.40); White Blood Cell (WBC) Count 11.1 thou/uL (4.8-10.8)
[2021-03-22 05:12] LABS: ALT (SGPT) 15 U/L (8-55); AST (SGOT) 21 U/L (5-34); Albumin 3.8 g/dL (3.4-4.8); Alkaline Phosphatase 95 U/L (40-110); Anion Gap 12 mmol/L (10-20); BUN (Urea Nitrogen) 18 mg/dL (9.8-20.1); Bilirubin, Total 0.5 mg/dL (0.2-1.2); Calc. Creatinine Clearance 0 mL/min (70-130); Calcium 10.4 mg/dL (7.8-10.44); Carbon Dioxide 28 mmol/L (23-31); Chloride 104 mmol/L (98-107); Glucose 134 mg/dL (83-110); Lipase 29 U/L (8-78); Potassium 4.1 mmol/L (3.5-5.1); Protein, Total 6.8 g/dL (5.8-8.1); Sodium 140 mmol/L (136-145)
[2021-03-22 05:44] LABS: Bilirubin Negative (Negative); Blood, Urine Negative (Negative); Clarity Clear (Clear); Glucose, Urine (Dipstick) Normal (Negative); Ketone, Urine Negative (Negative); Leukocyte Negative Leu/uL (Negative); Nitrite Negative (Negative); Protein, Urine (Dipstick) Negative (Neg-Trace); Specific Gravity, Urine 1.028 (1.002-1.036); Urobilinogen Normal mg/dL (Less than 2)
[2021-03-22] MEDS ORDERED: Morphine 4 MG/ML VIAL SLOW IVP PRN ×3 (06:42→18:44)
[2021-03-22] MEDS ORDERED: Acetaminophen 325 MG TAB PO PRN (06:43)
[2021-03-22] MEDS ORDERED: Ondansetron PF 4 MG/2 ML Vial IVP PRN ×2 (06:43→18:35)
[2021-03-22] MEDS ORDERED: Ondansetron ODT 4 MG TAB PO PRN ×2 (06:43→18:35)
[2021-03-22 08:48] VITALS: BMI 36.6
[2021-03-22] MEDS: Sodium Chloride 0.9% 1,000 ML IV SCH ×2 (08:59→20:19)
[2021-03-22] MEDS ORDERED: Xylocaine 1% w/ Epi 1:100K 10 ML VIAL ONE (11:29)
[2021-03-22] MEDS ORDERED: Bupivacaine 0.25% HCL 30 ML VIAL ONE (11:29)
[2021-03-22 11:45] LABS: SARS-CoV-2 NAA Rapid Test Not Detected (NotDetected)
[2021-03-22] MEDS ORDERED: Iopamidol 370 76% 100 ML VIAL ONE (11:50)
[2021-03-22] MEDS ORDERED: Fentanyl 100 MCG/2 ML VIAL ONE ×4 (13:19→17:22)
[2021-03-22] MEDS ORDERED: Clindamycin/D5W 600 mg/50 ml Premix Bag ONE (13:22)
[2021-03-22] MEDS ORDERED: Dexamethasone 20 MG/5 ML VIAL ONE (13:37)
[2021-03-22] MEDS ORDERED: Lidocaine 1% PF 5 ML VIAL ONE (13:37)
[2021-03-22] MEDS ORDERED: PHENYLEPHRINE-NS 100 MCG/ML 10 ML SYRINGE ONE (13:37)
[2021-03-22] MEDS ORDERED: Glycopyrrolate 0.2 MG/ML 5 ML SYRINGE ONE (13:37)
[2021-03-22] MEDS ORDERED: ePHEDrine 50 MG/ML VIAL ONE (13:37)
[2021-03-22] MEDS ORDERED: Rocuronium Bromide 10 MG/ML (10ML VIAL) ONE (13:37)
[2021-03-22] MEDS ORDERED: PROPOFOL 200 MG/20 ML VIAL ONE (13:37)
[2021-03-22] MEDS ORDERED: Promethazine HCl 25 MG/ML VIAL IM PRN (16:36)
[2021-03-22] MEDS ORDERED: Ondansetron HCl/PF 4 MG/2 ML Vial IVP PRN (16:36)
[2021-03-22] MEDS ORDERED: Promethazine HCl 25 MG/ML VIAL IVPB PRN (16:36)
[2021-03-22] MEDS ORDERED: PACU-Morphine 4MG/ML VIAL SLOW IVP PRN ×2 (17:44→17:45)
[2021-03-22] MEDS ORDERED: Dextrose 5% in Water 1,000 ML IV PRN (18:35)
[2021-03-22] MEDS ORDERED: Dextrose 50% Abboject 50 ML SYRINGE SLOW IVP PRN (18:35)
[2021-03-22] MEDS ORDERED: hydrALAZINE 20 MG/ML VIAL SLOW IVP PRN (18:35)
[2021-03-22] MEDS ORDERED: traMADol HCl 50 MG TAB PO PRN (18:35)
[2021-03-22] MEDS: D5 1/2 NS w/20 mEq KCL 1,000 ML IV SCH (20:17)
[2021-03-22] MEDS: Latanoprost 0.005% Ophth Soln 2.5 ml Bottle EA EYE SCH (20:18)
[2021-03-22] MEDS ORDERED: Famotidine 20 MG TAB PO SCH (21:00)
[2021-03-23 05:50] LABS: #Eosinphils 0.1 thou/uL (0.0-0.7); #Lymphocytes 1.5 thou/uL (1.20-3.40); %Basophils 0.2 % (0.0-1.0); %Eosinophils 0.5 % (0.0-10.0); %Lymphocytes 10.7 % (21.0-51.0); %Monocytes 7.6 % (0.0-10.0); Mean Corpuscular Hemoglobin 31.8 pg (27.0-31.0); Mean Corpuscular Volume 99.2 fL (78.0-98.0); Mean Platelet Volume 8.4 fL (7.4-10.4); Platelet Count 229 thou/uL (130-400); RBC Distribution Width 11.6 % (11.5-14.5); Red Blood Cell (RBC) Count 3.78 mill/uL (4.20-5.40); White Blood Cell (WBC) Count 13.6 thou/uL (4.8-10.8)
[2021-03-23] MEDS: HYDROcodone/Acetaminophen 10/325 mg Tablet PO PRN ×2 (05:52→15:10)
[2021-03-23] MEDS: D5 1/2 NS w/20 mEq KCL 1,000 ML IV SCH (05:53)
[2021-03-23 06:12] LABS: Anion Gap 13 mmol/L (10-20); BUN (Urea Nitrogen) 13 mg/dL (9.8-20.1); Calc. Creatinine Clearance 57 mL/min (70-130); Calcium 9.3 mg/dL (7.8-10.44); Carbon Dioxide 22 mmol/L (23-31); Chloride 107 mmol/L (98-107); Glucose 133 mg/dL (83-110); Sodium 137 mmol/L (136-145)
[2021-03-23] MEDS: Latanoprost 0.005% Ophth Soln 2.5 ml Bottle EA EYE SCH (20:46)
[2021-03-23] MEDS ORDERED: Famotidine 20 MG TAB PO SCH (21:00)
[2021-03-24] MEDS ORDERED: Polyethylene Glycol 3350 17 GM Packet PO SCH (09:00)
[2021-03-24 10:53] VITALS: TEMP 97.6
[2021-03-24 11:40] VITALS: BP 156/68
[2021-03-24] MEDS: HYDROcodone/Acetaminophen 10/325 mg Tablet PO PRN (12:13)
== END 2021-03-24 12:38 | disposition home or self-care (01) | DRG 355 ==
LOC: ERS 04:18 → SURG B 05:51
PROVIDERS: ADMIT Specialist; ATTEND Specialist
PROC: 0WUF4JZ Supplement Abdominal Wall with Synthetic Substitute, Percutaneous Endoscopic Approach (ICD-10-PCS; principal; 2021-03-22)
PROC: 8E0W4CZ Robotic Assisted Procedure of Trunk Region, Percutaneous Endoscopic Approach (ICD-10-PCS; 2021-03-22)
DX: K43.2 Incisional hernia without obstruction or gangrene (principal); I10 Essential (primary) hypertension; G89.29 Other chronic pain; J45.909 Unspecified asthma, uncomplicated; M06.9 Rheumatoid arthritis, unspecified; E78.00 Pure hypercholesterolemia, unspecified; F41.9 Anxiety disorder, unspecified; H81.09 Meniere's disease, unspecified ear; Z96.652 Presence of left artificial knee joint; E66.9 Obesity, unspecified; Z20.822 Contact with and (suspected) exposure to COVID-19; Z68.39 Body mass index [BMI] 39.0-39.9, adult; Z85.3 Personal history of malignant neoplasm of breast; Z90.710 Acquired absence of both cervix and uterus; Z90.49 Acquired absence of other specified parts of digestive tract; Z88.1 Allergy status to other antibiotic agents; Z88.0 Allergy status to penicillin; Z88.2 Allergy status to sulfonamides; Z88.8 Allergy status to other drugs, medicaments and biological substances; Z91.040 Latex allergy status
CPT/HCPCS: 36415; 74177; 80048; 80053; 81003; 83605; 83690; 85025; 96374; 96375; C1781; J1100; J2270; J2405; J2704; J3010; J3480; J3490; J7050; Q9967; S0020; U0002

== ENCOUNTER 2021-08-06 12:52 | Outpatient (CLI) | payer MEDICARE, OTHER | END 2021-08-06 12:53 | disposition home or self-care (01) | LOC: BICRAD 12:52 | PROVIDERS: ATTEND Nurse Practitioner Family | DX: M25.552 Pain in left hip (principal); Z85.3 Personal history of malignant neoplasm of breast ==

== ENCOUNTER 2021-09-18 08:33 | Outpatient (CLI) | payer MEDICARE, OTHER | END 2021-09-18 08:34 | disposition home or self-care (01) | LOC: BICRAD 08:33 | PROVIDERS: ATTEND Internal Medicine | DX: M54.2 Cervicalgia (principal); M47.812 Spondylosis without myelopathy or radiculopathy, cervical region; M43.12 Spondylolisthesis, cervical region | CPT/HCPCS: 72040 ==

== ENCOUNTER 2021-10-03 07:45 | Outpatient (CLI) | payer MEDICARE, OTHER | END 2021-10-03 07:46 | disposition home or self-care (01) | LOC: BICULT 07:45 | PROVIDERS: ATTEND Internal Medicine | DX: K76.0 Fatty (change of) liver, not elsewhere classified (principal); R93.89 Abnormal findings on diagnostic imaging of other specified body structures; E04.2 Nontoxic multinodular goiter; N28.1 Cyst of kidney, acquired; N20.0 Calculus of kidney | CPT/HCPCS: 76536; 76705 ==

== ENCOUNTER 2022-01-07 07:32 | Outpatient (CLI) | payer MEDICARE, OTHER | END 2022-01-07 07:33 | disposition home or self-care (01) | LOC: BICCT 07:32 | PROVIDERS: ATTEND Physician Assistant Medical | DX: R10.32 Left lower quadrant pain (principal); N28.9 Disorder of kidney and ureter, unspecified; I70.0 Atherosclerosis of aorta; K76.9 Liver disease, unspecified; N20.0 Calculus of kidney; M16.0 Bilateral primary osteoarthritis of hip; M47.819 Spondylosis without myelopathy or radiculopathy, site unspecified; R93.3 Abnormal findings on diagnostic imaging of other parts of digestive tract; Z90.49 Acquired absence of other specified parts of digestive tract; Z98.0 Intestinal bypass and anastomosis status; Z90.89 Acquired absence of other organs; Z90.710 Acquired absence of both cervix and uterus | CPT/HCPCS: 74177; 82565 ==

== ENCOUNTER 2022-03-13 08:30 | Outpatient (CLI) | payer MEDICARE, OTHER | END 2022-03-13 08:31 | disposition home or self-care (01) | LOC: BICMAMMO 08:30 | PROVIDERS: ATTEND Specialist | DX: Z08 Encounter for follow-up examination after completed treatment for malignant neoplasm (principal); Z85.3 Personal history of malignant neoplasm of breast | CPT/HCPCS: 77066; G0279 ==

== ENCOUNTER 2022-04-18 10:15 | Outpatient (CLI) | payer MEDICARE, OTHER | END 2022-04-18 10:16 | disposition home or self-care (01) | LOC: ULT 10:15 | PROVIDERS: ATTEND Internal Medicine Nephrology | DX: I10 Essential (primary) hypertension (principal); N28.9 Disorder of kidney and ureter, unspecified | CPT/HCPCS: 76770 ==

== ENCOUNTER 2022-04-24 09:16 | Outpatient (CLI) | payer MEDICARE, OTHER | END 2022-04-24 09:17 | disposition home or self-care (01) | LOC: BICMAMMO 09:16 | PROVIDERS: ATTEND Internal Medicine | DX: Z13.820 Encounter for screening for osteoporosis (principal); C50.412 Malignant neoplasm of upper-outer quadrant of left female breast; M81.0 Age-related osteoporosis without current pathological fracture; M85.89 Other specified disorders of bone density and structure, multiple sites | CPT/HCPCS: 77080 ==

== ENCOUNTER 2023-03-17 08:54 | Outpatient (CLI) | payer MEDICARE, OTHER | END 2023-03-17 08:55 | disposition home or self-care (01) | LOC: BICMAMMO 08:54 | PROVIDERS: ATTEND Specialist | DX: Z08 Encounter for follow-up examination after completed treatment for malignant neoplasm (principal); Z85.3 Personal history of malignant neoplasm of breast; Z98.890 Other specified postprocedural states | CPT/HCPCS: 77066; G0279 ==

== ENCOUNTER 2023-07-22 12:48 | Outpatient (CLI) | payer MEDICARE, OTHER | END 2023-07-22 12:49 | disposition home or self-care (01) | LOC: BICMAMMO 12:48 | PROVIDERS: ATTEND Internal Medicine | DX: M81.0 Age-related osteoporosis without current pathological fracture (principal); C50.412 Malignant neoplasm of upper-outer quadrant of left female breast; M85.88 Other specified disorders of bone density and structure, other site | CPT/HCPCS: 77080 ==

== ENCOUNTER 2024-10-12 10:24 | Outpatient (CLI) | payer MEDICARE, OTHER | END 2024-10-12 10:25 | disposition home or self-care (01) | LOC: BICMAMMO 10:24 | PROVIDERS: ATTEND Internal Medicine | DX: C50.412 Malignant neoplasm of upper-outer quadrant of left female breast (principal); M81.0 Age-related osteoporosis without current pathological fracture; M85.89 Other specified disorders of bone density and structure, multiple sites; T38.6X5A Adverse effect of antigonadotrophins, antiestrogens, antiandrogens, not elsewhere classified, initial encounter | CPT/HCPCS: 77080 ==

== ENCOUNTER 2025-01-23 13:36 | Outpatient (CLI) | payer MEDICARE, OTHER | END 2025-01-23 13:37 | disposition home or self-care (01) | LOC: RAD 13:36 | PROVIDERS: ATTEND Internal Medicine Critical Care Medicine | DX: R06.00 Dyspnea, unspecified (principal) | CPT/HCPCS: 71046 ==